=== PATIENT | female | born 1955 | race African-American/Black ===

== ENCOUNTER 2023-11-04 09:05 | Outpatient (AMB) | payer MEDICARE, MEDICAID, SELFPAY ==
[2023-11-04 09:07] VITALS: BP 182/88; PULSE 70; O2SAT 93; BMI 25.1
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
[2023-11-04 09:43] VITALS: BP 160/80
== END 2023-11-04 10:00 | disposition home or self-care (01) ==
PROVIDERS: PCP Physician Assistant; Visit Provider Physician Assistant
DX: M51.9 Unspecified thoracic, thoracolumbar and lumbosacral intervertebral disc disorder (principal); F11.20 Opioid dependence, uncomplicated; F33.1 Major depressive disorder, recurrent, moderate; Z12.31 Encounter for screening mammogram for malignant neoplasm of breast; I10 Essential (primary) hypertension; Z13.1 Encounter for screening for diabetes mellitus; F17.210 Nicotine dependence, cigarettes, uncomplicated; F41.1 Generalized anxiety disorder
CPT/HCPCS: 99204; G2211

== ENCOUNTER 2023-11-21 13:55 | Outpatient (AMB) | payer MEDICARE, MEDICAID, SELFPAY ==
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
[2023-11-21 14:04] VITALS: BP 193/93; PULSE 81; O2SAT 97; BMI 25.6
== END 2023-11-21 14:37 | disposition home or self-care (01) ==
PROVIDERS: PCP Physician Assistant; Referring Provider Physician Assistant; Visit Provider Nurse Practitioner Family
DX: M51.9 Unspecified thoracic, thoracolumbar and lumbosacral intervertebral disc disorder (principal); M47.817 Spondylosis without myelopathy or radiculopathy, lumbosacral region; M54.50 Low back pain, unspecified; G89.29 Other chronic pain; Z91.81 History of falling; M25.551 Pain in right hip; M25.552 Pain in left hip; Z79.891 Long term (current) use of opiate analgesic; M25.50 Pain in unspecified joint
CPT/HCPCS: 99204

== ENCOUNTER → 2023-11-21 13:55 | Outpatient (BNVA) | payer MEDICARE, MEDICAID, SELFPAY | PROVIDERS: PCP Physician Assistant; Referring Provider Physician Assistant; Visit Provider Nurse Practitioner Family | DX: M54.50 Low back pain, unspecified (principal); M25.551 Pain in right hip; M25.552 Pain in left hip; G89.29 Other chronic pain; M47.817 Spondylosis without myelopathy or radiculopathy, lumbosacral region; M51.9 Unspecified thoracic, thoracolumbar and lumbosacral intervertebral disc disorder; M25.50 Pain in unspecified joint; Z91.81 History of falling; Z79.891 Long term (current) use of opiate analgesic | CPT/HCPCS: 99202 ==

== ENCOUNTER 2023-11-26 07:30 | Outpatient (REF) | payer MEDICARE, MEDICAID, SELFPAY ==
[2023-11-26 09:28] LABS: Hematocrit 46.8 % (37.0-47.0); Hemoglobin 15.6 g/dl (12.0-16.0); Mean Corpuscular HGB Conc 33.3 g/dl (31.0-35.0); Mean Corpuscular Hemoglobin 29.2 pg (27.0-33.0); Mean Corpuscular Volume 87.6 fL (80.0-98.0); PLT CLUMP 1; Red Blood Count 5.34 X10*6/uL (4.20-5.50); Red Cell Distribution Width 13.7 % (11.0-16.0)
[2023-11-26 09:59] LABS: Mean Platelet Volume 11.3 fL (9.4-12.3); Platelet Count 187 X10*3/uL (160-400); White Blood Count 9.7 X10*3/uL (4.8-10.8)
[2023-11-26 10:02] LABS: Alanine Aminotransferase 19 U/L (0-31); Albumin Level 3.9 g/dL (3.5-5.0); Alkaline Phosphatase 112 U/L (39-117); Anion Gap 15 (12-20); Aspartate Amino Transferase 23 U/L (5-31); Bilirubin Total 0.4 mg/dL (0.0-1.0); Blood Urea Nitrogen 10 mg/dL (9-16); Calcium 9.8 mg/dL (8.4-10.2); Carbon Dioxide 24 mmol/L (22-29); Chloride 104 mmol/L (96-108); Estimated Glomerular Filt Rate > 60; Glucose Fasting 98 mg/dL (60-99); Potassium 4.2 mmol/L (3.3-5.1); Sodium 139 mmol/L (135-145); Total Protein 8.3 g/dL (6.5-8.0)
== END 2023-11-26 07:31 | disposition home or self-care (01) ==
LOC: HO.MAMMO 07:30
PROVIDERS: PCP Physician Assistant; Visit Provider Physician Assistant
DX: Z12.31 Encounter for screening mammogram for malignant neoplasm of breast (principal); I10 Essential (primary) hypertension; Z13.1 Encounter for screening for diabetes mellitus
CPT/HCPCS: 36415; 77063; 77067; 80053; 85027

== ENCOUNTER → 2023-11-26 11:15 | Outpatient (BNV) | payer MEDICARE, MEDICAID, SELFPAY | PROVIDERS: PCP Physician Assistant; Visit Provider Radiology Diagnostic Radiology | DX: Z12.31 Encounter for screening mammogram for malignant neoplasm of breast (principal) | CPT/HCPCS: 77063; 77067 ==

== ENCOUNTER 2023-11-26 19:30 | Outpatient (REF) | payer MEDICARE, MEDICAID, SELFPAY ==
[2023-11-27 10:14] LABS: Creatinine Urine 116.75 mg/dL; Microalbum/Creatinine Ratio Ur 5.9 ug/mg cr (<30)
== END 2023-11-26 19:31 | disposition home or self-care (01) ==
LOC: HO.LNP 19:30
PROVIDERS: Visit Provider Physician Assistant
DX: I10 Essential (primary) hypertension (principal)
CPT/HCPCS: 82043; 82570

== ENCOUNTER 2023-12-17 08:41 | Outpatient (AMB) | payer MEDICARE, MEDICAID, SELFPAY ==
[2023-12-17 08:53] VITALS: BP 160/72; PULSE 80; O2SAT 92; BMI 26.0
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
[2023-12-17 09:15] VITALS: BP 150/70
== END 2023-12-17 09:21 | disposition home or self-care (01) ==
PROVIDERS: PCP Physician Assistant; Visit Provider Physician Assistant
DX: M51.9 Unspecified thoracic, thoracolumbar and lumbosacral intervertebral disc disorder (principal); I10 Essential (primary) hypertension; F11.20 Opioid dependence, uncomplicated; F17.200 Nicotine dependence, unspecified, uncomplicated
CPT/HCPCS: 99214

== ENCOUNTER 2024-03-02 09:27 | Outpatient (AMB) | payer MEDICARE, MEDICAID, SELFPAY ==
--- NOTE | 2024-03-02 09:28 | MHC.PC.OV ---
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 Required: No Information Interpreted: non-clinical & clinical [employer] Insurance: Not Required per policy Accompanied by: Self / Same As Patient Allergies ciprofloxacin [From Cipro] Allergy (Severe, Verified 03/02/24 10:09) Unknown Medication List - Last Reconciled 03/02/24 by Jose Arreola PA-C baclofen 10 mg PO BEDTIME PRN 15 days blood pressure test kit-medium For automated blood pressure cuff testing once a day methadone 10 mg PO DAILY naloxone 4 mg/actuation intranasal Tobacco use date assessed: 11/04/23 Fall risk assessment: No Falls in past year Last assessed Fall Risk: 03/02/24 Dental Screening Dental Screen Date: 11/04/23 HPI 8 Week F/U HPI Details Patient is a 68 -year-old female here today for follow-up visit Patient has a past medical history significant for opiate dependency, chronic osteoarthritis, hypertension, light smoker. .. .. Hypertension: At last visit we discussed patient's higher blood pressure readings. Patient reports acquiring a blood pressure cuff and reports systolic numbers 130s to 140s even at 170 at home. She does report her blood pressure elevating when she has a high sodium content meal. Fortunately patient denies any chest discomfort, dizziness, vision issues. PLAN: Will start low-dose amlodipine at 2.5 mg daily and continue blood pressure monitoring. .. PFSH Medical History Hep C w/o coma, chronic Surgical History History of surgical removal of meniscus of knee H/O unilateral oophorectomy Family History Mother Myocardial infarct Breast cancer Social History Housing: Apartment Alcohol intake: never Patient Tobacco Use Status: Current everyday Tobacco user Years Smoked: 5. 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 How often do you have six or more drinks on one occasion?: Never Total Score: 0 SARAH-7 AMB Questionnaire SARAH-7 Date SARAH - 7 assessed: 11/04/23 Source: Developed by Drs. Bear Spann, Dorcas Lubin, Patrice Martinez and colleagues, with an educational yong from [employer]. Review of Systems Const Denies headache(s) Eyes Denies loss of vision ENT Denies vertigo, Denies dizziness, Denies headache(s) and Denies sore throat Card Denies chest pain, Denies leg edema and Denies lightheadedness Resp Denies cough, Denies hemoptysis and Denies wheezing GI Denies abdominal pain, Denies melena, Denies constipation, Denies diarrhea and Denies vomiting Denies urinary frequency, Denies dysuria and Denies urinary urgency Musc Denies arthralgias, Denies joint swelling, Denies numbness and Denies tingling Neuro Denies behavioral changes, Denies vertigo, Denies dizziness, Denies headache(s), Denies loss of vision, Denies memory loss, Denies numbness and Denies tingling Psych Denies anxiety, Denies behavioral changes, Denies depression, Denies memory loss and Denies panic attacks Jim/Lymph Denies easy bleeding and Denies easy bruising Aller/Immun Denies wheezing Physical exam (Primary Care) Tobacco/Smoking Status: Tobacco use Status Tobacco use date assessed 11/04/23 03/02/24 09:29 Patient Tobacco Use Status Current everyday Tobacco 03/02/24 09:29 e-Cigarette/Vaping Use Never Used 03/02/24 09:29 Thrive Assessment: Date of Thrive Assessment Date Thrive assessed 11/04/23 03/02/24 09:29 Telehealth Telehealth Telehealth Platform: Telephone Location of provider rendering services: practice address Location of patient: address on file Patient Identification confirmed using: Name, : Yes Telehealth method: voice only Patient verbally consented to treatment: Yes Patient verbally consented to billing insurance company: Yes Patient informed of any privacy concerns related to visit: Yes Minutes spent on Phone/Video with Pt.: 11 Coding Level of Care Code Tele Est Pt Level 3 (39459) Diagnoses Primary hypertension I10 Hypertension type: primary hypertension Assessment & Plan Assessment & Plan (1) HTN (hypertension): Code(s): I10 - Essential (primary) hypertension Category: Medical Qualifiers: Hypertension type: primary hypertension Qualified Code(s): I10 - Essential (primary) hypertension Plan: As per HPI patient willing to start low-dose calcium channel hasmukh thus will start amlodipine 2.5 mg daily. Advised to continue monitoring blood pressure at home with goal blood pressure to be below 140/90. Orders: Orders Comprehensive Bostic. Panel Fast Today I10 - Essential (primary) hypertension Microalbumin, Random (w Creat) Today I10 - Essential (primary) hypertension Complete Blood Count no Diff Today I10 - Essential (primary) hypertension Medications: New amlodipine 2.5 mg PO DAILY 90 days 90 tabs 1RF I10 - Essential (primary) hypertension
== END 2024-03-02 11:54 | disposition home or self-care (01) ==
LOC: HO.HMCH 09:27
PROVIDERS: PCP Physician Assistant; Visit Provider Physician Assistant
DX: I10 Essential (primary) hypertension (principal)

== ENCOUNTER → 2024-03-02 09:27 | Outpatient (BNVA) | payer MEDICARE, MEDICAID, SELFPAY | PROVIDERS: PCP Physician Assistant; Visit Provider Physician Assistant ==

== ENCOUNTER 2024-08-25 14:28 | Outpatient (AMB) | payer MEDICARE, MEDICAID, SELFPAY ==
[2024-08-25 14:36] VITALS: BP 180/82; PULSE 80; TEMP 36.2; O2SAT 99; BMI 27.8
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
[2024-08-25 14:51] VITALS: BP 160/80
== END 2024-08-25 15:02 | disposition home or self-care (01) ==
LOC: HO.HMCH 14:28
PROVIDERS: PCP Physician Assistant; Visit Provider Physician Assistant
DX: M48.062 Spinal stenosis, lumbar region with neurogenic claudication (principal); F33.1 Major depressive disorder, recurrent, moderate; F11.20 Opioid dependence, uncomplicated; I10 Essential (primary) hypertension

== ENCOUNTER → 2024-08-25 14:28 | Outpatient (BNVA) | payer MEDICARE, MEDICAID, SELFPAY | PROVIDERS: PCP Physician Assistant; Visit Provider Physician Assistant | DX: M48.062 Spinal stenosis, lumbar region with neurogenic claudication (principal); F33.1 Major depressive disorder, recurrent, moderate; F11.20 Opioid dependence, uncomplicated; I10 Essential (primary) hypertension | CPT/HCPCS: 96127; 99212 ==

== ENCOUNTER 2024-09-02 09:23 | Outpatient (REF) | payer MEDICARE, MEDICAID, SELFPAY ==
[2024-09-02 10:28] LABS: Hematocrit 44.8 % (37.0-47.0); Hemoglobin 14.8 g/dl (12.0-16.0); Mean Corpuscular Hemoglobin 29.2 pg (27.0-33.0); Mean Corpuscular Volume 88.4 fL (80.0-98.0); Mean Platelet Volume 11.5 fL (9.4-12.3); Platelet Count 226 X10*3/uL (160-400); Red Blood Count 5.07 X10*6/uL (4.20-5.50); Red Cell Distribution Width 13.9 % (11.0-16.0); White Blood Count 8.5 X10*3/uL (4.8-10.8)
[2024-09-02 11:23] LABS: Creatinine Urine 85.97 mg/dL; Microalbum/Creatinine Ratio Ur 11.6 ug/mg cr (<30)
[2024-09-02 11:38] LABS: Alanine Aminotransferase 25 U/L (0-31); Albumin Level 3.8 g/dL (3.5-5.0); Alkaline Phosphatase 115 U/L (39-117); Anion Gap 11 (12-20); Aspartate Amino Transferase 31 U/L (5-31); Bilirubin Total 0.6 mg/dL (0.0-1.0); Blood Urea Nitrogen 7 mg/dL (9-16); Carbon Dioxide 28 mmol/L (22-29); Chloride 107 mmol/L (96-108); Estimated Glomerular Filt Rate > 60; Glucose Fasting 98 mg/dL (60-99); Potassium 3.6 mmol/L (3.3-5.1); Sodium 142 mmol/L (135-145); Total Protein 7.5 g/dL (6.5-8.0)
== END 2024-09-02 09:24 | disposition home or self-care (01) ==
LOC: HO.LAB 09:23
PROVIDERS: PCP Physician Assistant; Visit Provider Physician Assistant
DX: I10 Essential (primary) hypertension (principal)
CPT/HCPCS: 36415; 80053; 82043; 82570; 85027

== ENCOUNTER 2024-09-11 09:27 | Outpatient (AMB) | payer MEDICARE, MEDICAID, SELFPAY ==
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
[2024-09-11 09:37] VITALS: BP 168/82; PULSE 97; O2SAT 98; BMI 27.0
== END 2024-09-11 09:47 | disposition home or self-care (01) ==
LOC: HO.PMC 09:27
PROVIDERS: PCP Physician Assistant; Referring Provider Physician Assistant; Visit Provider Nurse Practitioner Family
DX: M47.817 Spondylosis without myelopathy or radiculopathy, lumbosacral region (principal); M54.50 Low back pain, unspecified; G89.29 Other chronic pain; M25.551 Pain in right hip; M25.552 Pain in left hip; Z91.81 History of falling; Z79.891 Long term (current) use of opiate analgesic; E65 Localized adiposity; M48.062 Spinal stenosis, lumbar region with neurogenic claudication; M54.16 Radiculopathy, lumbar region
CPT/HCPCS: 99214; G2211

== ENCOUNTER 2024-09-11 09:27 | Outpatient (REF) | payer MEDICARE, MEDICAID, SELFPAY ==
--- NOTE | ~2024-09-11 | XR_ITS ---
CLINICAL HISTORY: M47.817 - Spondylosis without myelopathy or radiculopathy, lumbosacral r... 7 views lumbar spine Comparison: None Findings: Normal alignment. No acute fractures or dislocation. L5-S1 degenerative disc change. Multiple level degenerative facet change. IMPRESSION: No acute findings. This document has been electronically signed by: Fahad Cardona MD on 09/12/2024 09:13:55
--- NOTE | ~2024-09-11 | XR_ITS ---
CLINICAL HISTORY: M25.551 - Pain in right hip 5 view, pelvis and right hip Comparison: None Findings: No acute fracture or dislocation. No significant arthritic change. The soft tissues are unremarkable. IMPRESSION: No acute findings. This document has been electronically signed by: Fahad Cardona MD on 09/12/2024 09:14:45
== END 2024-09-11 09:28 | disposition home or self-care (01) ==
LOC: HO.XRAY 09:27
PROVIDERS: PCP Physician Assistant; Referring Provider Physician Assistant; Visit Provider Nurse Practitioner Family
DX: M47.817 Spondylosis without myelopathy or radiculopathy, lumbosacral region (principal); M54.50 Low back pain, unspecified; G89.29 Other chronic pain; M25.551 Pain in right hip; M25.552 Pain in left hip; Z91.81 History of falling; E65 Localized adiposity; M48.062 Spinal stenosis, lumbar region with neurogenic claudication
CPT/HCPCS: 72114; 73521; 99212

== ENCOUNTER → 2024-09-11 10:00 | Outpatient (BNV) | payer MEDICARE, MEDICAID, SELFPAY | PROVIDERS: PCP Physician Assistant; Referring Provider Physician Assistant; Visit Provider Specialist | DX: M47.817 Spondylosis without myelopathy or radiculopathy, lumbosacral region (principal); M25.551 Pain in right hip | CPT/HCPCS: 72114; 73521 ==

== ENCOUNTER → 2024-10-09 08:00 | Outpatient (BNV) | payer MEDICARE, MEDICAID, SELFPAY | PROVIDERS: PCP Physician Assistant; Visit Provider Radiology Diagnostic Radiology | DX: M51.369 Other intervertebral disc degeneration, lumbar region without mention of lumbar back pain or lower extremity pain (principal); M99.63 Osseous and subluxation stenosis of intervertebral foramina of lumbar region | CPT/HCPCS: 72148 ==

== ENCOUNTER 2024-10-09 08:04 | Outpatient (REF) | payer MEDICARE, MEDICAID, SELFPAY ==
--- NOTE | ~2024-10-09 | MR_ITS ---
EXAMINATION: MR LUMBAR SPINE WITHOUT IV CONTRAST History: M47.817 - Spondylosis without myelopathy or radiculopathy, lumbosacral Technique: Sagittal T1, T2 and STIR, and axial T1 and T2 weighted images of the lumbar spine were obtained per departmental protocol. Comparison: Correlation is made with plain films of the lumbar spine dated 09/11/2024. Findings: The vertebral bodies maintain normal height, alignment, and marrow signal intensity. Minimal degenerative changes are noted at L5-S1 with anterior and posterior spurring. At T12-L1,there is no evidence of disc herniation, central spinal stenosis, or neural foraminal narrowing. At L1-2, there is no evidence of disc herniation, central spinal stenosis, or neural foraminal narrowing. At L2-3, there is no evidence of disc herniation, central spinal stenosis, or neural foraminal narrowing. At L3-4, there is a mild disc bulge. There is facet and ligamentum flavum hypertrophy causing mild central spinal stenosis. There is narrowing of the inferior recesses of the bilateral neural foramen. At L4-5, there is a mild to moderate disc bulge. There is facet osteoarthritis causing moderate central spinal stenosis and mild bilateral neural foraminal stenosis. At L5-S1, there is posterior spurring. There is mild facet degenerative change causing right neural foraminal narrowing. The left neural foramen is patent. There is no central spinal stenosis. The conus terminates at the L1-2 level and demonstrates normal signal intensity. The visualized paraspinal soft tissues are unremarkable. MR/MR lumbar spine wo con Impression: 1. Mild central spinal stenosis at L3-4 secondary to a mild disc bulge and facet and ligamentum flavum hypertrophy. 2. Moderate central spinal stenosis at L4-5 secondary to a disc bulge and facet osteoarthritis. Mild bilateral neural foraminal narrowing. 3. Right neural foraminal stenosis at L5-S1 secondary to facet degenerative change. Electronically signed by: Bear Lombardi MD 10/09/2024 09:10 AM EDT
== END 2024-10-09 08:05 | disposition home or self-care (01) ==
LOC: HO.MRI 08:04
PROVIDERS: PCP Physician Assistant; Visit Provider Nurse Practitioner Family
DX: M47.817 Spondylosis without myelopathy or radiculopathy, lumbosacral region (principal); M48.062 Spinal stenosis, lumbar region with neurogenic claudication; M54.16 Radiculopathy, lumbar region; Z91.81 History of falling
CPT/HCPCS: 72148

== ENCOUNTER 2024-11-05 10:34 | Outpatient (AMB) | payer MEDICARE, MEDICAID, SELFPAY ==
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
[2024-11-05 10:41] VITALS: BP 180/84; PULSE 84; O2SAT 98; BMI 28.3
== END 2024-11-05 10:58 | disposition home or self-care (01) ==
LOC: HO.PMC 10:35
PROVIDERS: PCP Physician Assistant; Visit Provider Nurse Practitioner Family
DX: M47.817 Spondylosis without myelopathy or radiculopathy, lumbosacral region (principal); M54.50 Low back pain, unspecified; G89.29 Other chronic pain; Z91.81 History of falling; M25.551 Pain in right hip; M25.552 Pain in left hip; M48.062 Spinal stenosis, lumbar region with neurogenic claudication; M54.16 Radiculopathy, lumbar region; R26.81 Unsteadiness on feet
CPT/HCPCS: 99214; G2211

== ENCOUNTER → 2024-11-05 10:34 | Outpatient (BNVA) | payer MEDICARE, MEDICAID, SELFPAY | PROVIDERS: PCP Physician Assistant; Visit Provider Nurse Practitioner Family | DX: M47.817 Spondylosis without myelopathy or radiculopathy, lumbosacral region (principal); M54.50 Low back pain, unspecified; G89.29 Other chronic pain; Z91.81 History of falling; M25.551 Pain in right hip; M25.552 Pain in left hip; M54.16 Radiculopathy, lumbar region; R26.81 Unsteadiness on feet | CPT/HCPCS: 99212 ==

== ENCOUNTER 2024-12-03 07:22 | Outpatient (REF) | payer MEDICARE, MEDICAID, SELFPAY | END 2024-12-03 07:23 | disposition home or self-care (01) | LOC: HO.MAMMO 07:22 | PROVIDERS: PCP Physician Assistant; Visit Provider Physician Assistant | DX: Z12.31 Encounter for screening mammogram for malignant neoplasm of breast (principal) | CPT/HCPCS: 77063; 77067 ==

== ENCOUNTER → 2024-12-03 07:30 | Outpatient (BNV) | payer MEDICARE, MEDICAID, SELFPAY | PROVIDERS: PCP Physician Assistant; Visit Provider Radiology Body Imaging | DX: Z12.31 Encounter for screening mammogram for malignant neoplasm of breast (principal) | CPT/HCPCS: 77063; 77067 ==

== ENCOUNTER 2024-12-15 06:05 | Outpatient (REF) | payer MEDICARE, MEDICAID, SELFPAY ==
--- NOTE | ~2024-12-15 | FL_ITS ---
EXAMINATION: FL GUIDANCE ONLY HISTORY: M54.16 - Radiculopathy, lumbar region COMPARISON: None available. TECHNIQUE: Fluoroscopy time: 0.7 minutes. Cumulative Dose: 10.3 mGy. DAP: 0.106 mGym2 Images: 5. FINDINGS: Fluoroscopic spot films of the lumbar spine demonstrate needles and contrast material inferior to the bilateral L4 pedicles. FL/FL guidance in treatment room IMPRESSION: Fluoroscopy during procedure. Please see procedure report for additional information. Electronically signed by: Bear Lombardi MD 12/15/2024 09:52 AM EDT
== END 2024-12-15 06:06 | disposition home or self-care (01) ==
LOC: CF 06:05
PROVIDERS: Visit Provider Anesthesiology
DX: M47.817 Spondylosis without myelopathy or radiculopathy, lumbosacral region (principal); M54.16 Radiculopathy, lumbar region; M48.062 Spinal stenosis, lumbar region with neurogenic claudication; M25.551 Pain in right hip; M25.552 Pain in left hip; G89.29 Other chronic pain; M54.50 Low back pain, unspecified; R26.81 Unsteadiness on feet; Z91.81 History of falling
CPT/HCPCS: 64483; J2003; J3301; Q9967

== ENCOUNTER 2024-12-15 07:31 | Outpatient (AMB) | payer MEDICARE, MEDICAID, SELFPAY ==
[2024-12-15 07:47] VITALS: BP 114/67; PULSE 99; RESP 16; O2SAT 97
--- NOTE | 2024-12-15 07:47 | MHC.OFFVIS ---
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 Allergies ciprofloxacin (From Cipro) Allergy (Severe, Verified 11/05/24 10:42) Unknown amlodipine Adverse Reaction (Intermediate, Verified 11/05/24 10:42) pedal edema PFSH Medical History Current smoker on some days Patient on methadone maintenance therapy Polyarthralgia HTN (hypertension) SARAH (generalized anxiety disorder) MDD (major depressive disorder), recurrent episode, moderate Lumbar stenosis Bilateral hip pain Chronic low back pain Lumbosacral spondylosis Opiate dependence Lumbar disc disorder Hep C w/o coma, chronic Surgical History History of surgical removal of meniscus of knee H/O unilateral oophorectomy Family History Mother Myocardial infarct Breast cancer Social History Housing: Apartment Alcohol intake: never Patient Tobacco Use Status: Current everyday Tobacco user Years Smoked: 5. 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 Current occupational exposures/hazards: No Cognitive needs: No Hearing needs: No Vision needs: No Physical Exam Vital Signs: Last Vital Signs Pulse 96 12/15/24 08:53 Resp 18 12/15/24 08:53 BP 151/84 H 12/15/24 08:53 Pulse Ox 98 12/15/24 08:53 Oxygen Delivery Method Room Air 12/15/24 08:53 Assessment & Plan Assessment & Plan (1) Lumbosacral spondylosis: Code(s): M47.817 - Spondylosis without myelopathy or radiculopathy, lumbosacral region Category: Medical (2) Chronic low back pain: Code(s): M54.50 - Low back pain, unspecified; G89.29 - Other chronic pain Category: Medical (3) History of recent fall: Code(s): Z91.81 - History of falling Category: Medical (4) Bilateral hip pain: Code(s): M25.551 - Pain in right hip; M25.552 - Pain in left hip Category: Medical (5) Lumbar stenosis: Code(s): M48.061 - Spinal stenosis, lumbar region without neurogenic claudication Category: Medical Qualifiers: Neurogenic claudication status: with neurogenic claudication Qualified Code(s): M48.062 - Spinal stenosis, lumbar region with neurogenic claudication (6) Lumbar radiculopathy: Code(s): M54.16 - Radiculopathy, lumbar region Category: Medical (7) Unsteady gait when walking: Code(s): R26.81 - Unsteadiness on feet Category: Medical Plan Bilateral transforaminal L4-5 epidural steroid injection Informed consent was thoroughly explained to the patient before the procedure.? The patient came to the operating room.? He was positioned prone on operating table with a pillow under his abdomen.? Time-out was performed delineating correct site and side of the procedure, nature of the injection, name and date of of the patient. The lower back of the patient was prepped with ChloraPrep and draped with sterile utility towels.? C-arm was brought over the operating field, transitional anatomy was noted, the L4 vertebra was located counting down from the 1st [id number] vertebra, and after the sq picture of L4 vertebra was demonstrated on the screen.? The right side was chosen 1st as the side of the injection.? Tilting machine ipsilateral 30 degrees to the right at the level of L4 the most prominent picture of the right superior articular process of L5 was obtained on the screen.? The lateral border of the structure projection to the skin was injected with small amount of lidocaine 1% 3-4 cc .? After that 5 in 22 gauge Quincke point needle was inserted through the skin wheal and was advanced toward the right L4-5 foramina on anterior posterior , lateral and oblique views intermittently.? When needle gently contacted lateral border of the superior articular process of right L5 the needle was slightly deviated lateral advanced 2-3 mm and deviated medial, contrast was injected and demonstrated intravascular spread of the contrast. The needle was withdrawn and positioned was changed to the projection of the 3 mm below of the projection of the lowest point of the pedicle on the right. Injection of the local anesthetic was repeated at the site and after that 22 gauge 5 in needle was inserted through the skin wheal and advanced to were the foramina under anterior posterior and lateral views. When the tip of the needle on anterior posterior view entered the silhouette of the spinal column and appeared to be approximately at the line bisecting the pedicle injection of the contrast was performed demonstrating perineural and epidural spread of the contrast. No intrathecal and no intravascular spread of the contrast was noted. After that treatment solution of lidocaine 1% preservative-free mixed with Kenalog 40 mg was performed into this site. After that the location of the C-arm was changed to demonstrate most prominent picture of the left pedicle, the 3 mm below the projection of the most lowest point of the left pedicle to the skin was injected with lidocaine 1% and after that 22 gauge 5 in needle was inserted through the skin wheal and advanced to were the foramina under anterior posterior, lateral, and oblique views. When tip of the needle on AP view entered projection of the silhouette of the spinal column and the tip of the needle was not crossing over the line bisecting the left pedicle injection of the contrast was performed demonstrating no intrathecal and no intravascular spread of the contrast, it demonstrated perineural and epidural spread of the contrast. Injection of the solution of the lidocaine 1% 3 cc mixed with Kenalog 40 mg was performed into the needle. The needle was withdrawn and sterile Band-Aids were applied. The patient tolerated the procedure well. Orders: Orders FL guidance in treatment room Today M54.16 - Radiculopathy, lumbar region Coding Level of Care Code Procedure Only Diagnoses Lumbosacral spondylosis M47.817 Chronic low back pain M54.50; G89.29 History of recent fall Z91.81 Bilateral hip pain M25.551; M25.552 Spinal stenosis of lumbar region with neurogenic claudication M48.062 Neurogenic claudication status: with neurogenic claudication Lumbar radiculopathy M54.16 Unsteady gait when walking R26.81
[2024-12-15 08:53] VITALS: BP 151/84; PULSE 96; RESP 18; O2SAT 98
== END 2024-12-15 08:53 | disposition home or self-care (01) ==
LOC: HO.PMCPRC 07:31
PROVIDERS: PCP Physician Assistant; Visit Provider Anesthesiology
DX: M47.817 Spondylosis without myelopathy or radiculopathy, lumbosacral region (principal); M54.50 Low back pain, unspecified; G89.29 Other chronic pain; Z91.81 History of falling; M25.551 Pain in right hip; M25.552 Pain in left hip; M48.062 Spinal stenosis, lumbar region with neurogenic claudication; M54.16 Radiculopathy, lumbar region; R26.81 Unsteadiness on feet
CPT/HCPCS: 64483

== ENCOUNTER 2025-02-01 09:04 | Outpatient (AMB) | payer MEDICARE, MEDICAID, SELFPAY ==
--- NOTE | 2025-02-01 09:06 | A.SPINEOV_ITS ---
Vital Signs 02/01/25 09:09 Height 5 ft 2 in Weight 157 lb BMI 28.7 Intake Visit Reasons: LBP Intake Note: Ms. Crowell is here today c/o low back pain that radiates down to the legs. 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 She is a pleasant 69-year-old female comes in today for evaluation of low back pain and shooting pain down her bilateral lower extremities. She reports that this has been ongoing for many years, however over the course of the last year it is significant for worsened. She states that her pain primarily begins in her low back and shoots down the posterior aspect of her bilateral lower extremities, however her left side is significantly worse than the right. She does report some tingling in her bilateral toes, however reports no burning or numbness associated with the pain. She most recently underwent injection at L4-5 with our colleagues in pain management, however states she only obtained about 1 day of relief from the injection before her pain returned. She reports that her pain significantly worsens with ambulation, and that it improves with sitting and resting. In fact she reports 0 pain when sitting down. She does report that she occasionally will wake up overnight and pain, and needs to either take some medication (cyclobenzaprine) or wait for the pain to past to fall back asleep. She has attempted physical therapy in the past, however states that she last went to PT about 1 year ago. She states that she is not currently using any over-the- counter medications at home to help mitigate her pain, however she does use the occasional lidocaine patch to help her symptoms. In addition to this she is also on methadone maintenance. PMH: Opioid use disorder in remission on methadone maintenance, hypertension, major depressive disorder, generalized anxiety disorder, polyarthralgias. Social hx: The patient reports that she smokes a few cigarettes occasionally per day. She denies any other substance use. Medications: Methadone, naloxone, losartan, cyclobenzaprine, lidocaine patches. Allergies: Cipro, amlodipine. Physical exam: On examination the patient has about 4/5 strength with bilateral iliopsoas testing. The rest of her strength in her upper and lower extremities is 5/5. She ambulates slightly hunched over and does so slowly. She is able to rise from a seated position by bracing herself on the chair, and gets up onto the examination table without much issue. She has no significant sensational deficits to light touch on examination. (-) bilateral straight leg raise, (-) De La O's, (-) clonus. Imaging review: MRI of the lumbar spine completed here at [facility] shows slight posterior disc bulge at L3-4 causing mild bilateral foraminal stenosis. There is also posterior disc bulge at L4-5 causing mild- moderate central canal and moderate left-sided lateral recess stenosis. There is notable disc degeneration at L5-S1 with anterior osteophyte growth and some posterior disc bulging. There is moderate right-sided lateral recess stenosis at this level. Impression: Diana is a pleasant 69-year-old female who comes in today for evaluation of low back pain and shooting pain to her bilateral lower extremities. She states that this has been ongoing for many years, however as notably worsened over the course of the past 1 year. She has attempted injections with our colleagues in pain management, however did not obtain longstanding relief. The only real left-sided compression I am able to identify is at L4-5, however the patient had little to no response from injections at this level. Therefore, it is difficult to justify surgical intervention to decompress L4-5. In addition to this the dermatomal distribution of her pain best matches an S1 dermatome, as the pain she describes travels down the posterior aspect of her leg to the bottom of her foot. I do not believe that surgical intervention would be helpful for this patient's back pain at this time. I encouraged her to continue to follow up with our colleagues in pain management to continue to discuss potential pain treatment options. It does sound like she gets fairly good relief from her cyclobenzaprine. It may be worth attempting injections at L5-S1 to see if this helps relieve her pain, given it's distribution. Thank you for allowing us to care for your patient. The total time spent with this visit with this patient was 45 minutes reviewing history, physical exam, MRI imaging review, and implementation of treatment plan or further diagnostic testing Brodie Alicia MD,PhD [facility] Coding Level of Care Code New Pt Level 4 (76367) Diagnoses Lumbar radiculopathy M54.16
[2025-02-01 09:09] VITALS: BMI 28.7
== END 2025-02-01 09:58 | disposition home or self-care (01) ==
LOC: HO.HNS 09:04
PROVIDERS: PCP Physician Assistant; Referring Provider Nurse Practitioner Family; Visit Provider Physician Assistant
DX: M54.16 Radiculopathy, lumbar region (principal)
CPT/HCPCS: 99204

== ENCOUNTER → 2025-02-01 09:04 | Outpatient (BNVA) | payer MEDICARE, MEDICAID, SELFPAY | PROVIDERS: PCP Physician Assistant; Referring Provider Nurse Practitioner Family; Visit Provider Physician Assistant | DX: M54.16 Radiculopathy, lumbar region (principal); F11.21 Opioid dependence, in remission; F17.210 Nicotine dependence, cigarettes, uncomplicated | CPT/HCPCS: 99202 ==

== ENCOUNTER 2025-05-06 10:50 | Outpatient (AMB) | payer MEDICARE, SELFPAY ==
--- NOTE | 2025-05-06 10:54 | A.OFFPC_ITS ---
Vital Signs 05/06/25 10:56 05/06/25 11:27 Height 5 ft 2 in Weight 151 lb 8 oz BMI 27.7 BP 150/88 H 160/80 H Blood Pressure Location Lt brachial Position Sitting Respiration 16 Pulse 108 H Pulse Source Pulse Oximeter Temp 96.8 F Temp Source Temporal Artery Scan Pulse Oximetry (%) 97 Oxygen Delivery Method Room Air Intake Visit Reasons: annual exam Strategic Partnership Manager Required: No Accompanied by: Self / Same As Patient Allergies ciprofloxacin (From Cipro) Allergy (Severe, Verified 05/06/25 11:13) Unknown amlodipine Adverse Reaction (Intermediate, Verified 05/06/25 11:13) pedal edema Medication List - Last Reconciled 05/06/25 by Jose Arreola PA-C blood pressure test kit-medium For automated blood pressure cuff testing once a day cyclobenzaprine 10 mg PO BID 10 days losartan 50 mg PO DAILY 90 days methadone 10 mg PO DAILY naloxone 4 mg/actuation intranasal walker (Ultra-Light Rollator misc) As directed Tobacco use date assessed: 05/06/25 Fall risk assessment: 2 + Falls in past year Last assessed Fall Risk: 05/06/25 Dental Screening Dental Screen Date: 05/06/25 Did you have a dental visit in the last 12 months?: Yes Did you have a dental problem in the last 6 months where you did not have access to dental care?: No Was dental information given to patient?: Patient has dentist HPI annual exam HPI Details Patient is a 69-year-old female here today for routine annual physical. Patient has a past medical history significant for opiate dependency, chronic osteoarthritis, hypertension, light smoker. .. Lumbar stenosis: Now followed by pain management, continues on methadone and p.r.n. use of a muscle relaxer for her back. She has been using a lumbar support brace which does help her stabilize her low back. She is asking for script for Rollator walker to help with ambulation and fall risk reduction. .. Hypertension: At last visit we discussed patient's higher blood pressure readings. Noted high blood pressure reading today in office. Patient reports acquiring a blood pressure cuff and reports systolic numbers 130s to 140s . She continues on losartan 50 mg. PLAN: Will increase her losartan to 100 mg for better blood pressure control . Light cigarette smoker: Patient does report smoking a few cigarettes throughout the week. She has willing to do though pneumonia vaccine . Opiate dependency: Continues to follow a methadone clinic, she reports she stays away from any illicit drug use per patient. Colon cancer screening: reports getting colonoscopy 4 years ago- will try to get records from [place].Willing to do cologaurd Mammograms: Done in 11/2024 -BI-RADS 1 Vaccines: Up-to-date with COVID vaccine, Did get Shingles vaccine, needs pneumonia vaccine. Declines flu vaccine [facility] Medical History Current smoker on some days Patient on methadone maintenance therapy Polyarthralgia HTN (hypertension) SARAH (generalized anxiety disorder) MDD (major depressive disorder), recurrent episode, moderate Lumbar stenosis Bilateral hip pain Chronic low back pain Lumbosacral spondylosis Opiate dependence Lumbar disc disorder Hep C w/o coma, chronic Surgical History History of surgical removal of meniscus of knee H/O unilateral oophorectomy Family History (Updated 05/06/25 @ 11:19 by Jose Arreola PA-C) Mother Myocardial infarct Breast cancer Brother Skin cancer Social History Housing: Apartment Alcohol intake: never Patient Tobacco Use Status: Current someday Tobacco user Years Smoked: 5. 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 1. Little interest or pleasure in doing things: more than half the days 2. Feeling down, depressed, or hopeless: more than half the days 3. Trouble falling or staying asleep, or sleeping too much: nearly every day 4. Feeling tired or having little energy: nearly every day 5. Poor appetite or overeating: not at all 6. Feeling bad about yourself - or that you are a failure or have let yourself or your family down: several days 7. Trouble concentrating on things, such as reading the newspaper or watching television: nearly every day 8. Moving or speaking so slowly that other people could have noticed. Or the opposite - being so fidgety or restless that you have been moving around a lot more than usual: several days 9. Thoughts that you would be better off or of hurting yourself in some way: not at all Total score: 15 Depression Screening Interpretation: Positive Depression Screening Follow-up: Existing condition and Declines treatment Depression Screening Done: Yes 80357 - PHQ-9 Billing: Yes Source: Developed by Drs. Bear Spann, Dorcas Lubin, Patrice Martinez and colleagues, with an educational yong from [email or web address]. Thrive Questionnaire Date Thrive assessed: 05/06/25 I am a: Patient What is your living situation today?: I have a place to live, but I am worried about losing it in the future Within the past 12 months, did the food you bought not last and you didn't have the money to get more?: Sometimes True Within the past 12 months, did you worry whether your food would run out before you got money to buy more?: Sometimes True Do you have trouble paying for medicines?: Yes Do you have trouble getting transportation to medical appointments?: Yes Do you have trouble paying your heating and electricity bill?: Yes Do you have trouble taking care of your child, family member or friend?: No Do you have trouble with day-to-day activities such as bathing, preparing meals, shopping, managing finances, etc.?: Yes Are you currently unemployed and looking for a job?: No Are you interested in more education?: No Please select the resources that you would like help with: Housing/[facility], Food, Paying for medicine and Transportation Currently or been in a relationship where the following occur: No concerns reported THRIVE Score: 5 AUDIT C Alcohol Use Questionnaire (AUDIT-C) 1. How often do you have a drink containing alcohol?: Never 3. How often do you have six or more drinks on one occasion?: Never Total Score: 0 SARAH-7 AMB Questionnaire SARAH-7 Date SARAH - 7 assessed: 05/06/25 Feeling nervous, anxious, or on edge: 1 = Several days Not being able to stop or control worryin = Not at all Worrying too much about different things: 0 = Not at all Trouble relaxin = Several days Being so restless that it is hard to sit still: 0 = Not at all Becoming easily annoyed or irritable: 0 = Not at all Feeling afraid as if something awful might happen: 0 = Not at all Total SARAH-7 score (0-4 normal; 5-9 mild; 10-14 moderate; 15-21 severe): 2 Source: Developed by Drs. Bear Spann, Dorcas Lubin, Patrice Martinez and colleagues, with an educational yong from [email or web address]. SARAH-7 Assessment Billing SARAH-7 Assessment Tool: SARAH-7 Assessment 19326 Review of Systems Const Denies body aches, Denies chills, Denies excessive sweating, Denies fatigue, Denies fever(s) and Denies headache(s) Eyes Denies blurry vision ENT Denies dysphagia, Denies vertigo, Denies dizziness, Denies headache(s), Denies hearing loss and Denies tinnitus Card Denies chest pain, Denies chest pain with activity, Denies syncope, Denies irregular heart rhythm and Denies dyspnea Resp Denies chest congestion, Denies cough, Denies hemoptysis, Denies dyspnea and Denies wheezing GI Denies abdominal pain, Denies melena, Denies hematochezia, Denies coffee ground emesis, Denies dysphagia, Denies diarrhea, Denies nausea and Denies vomiting Denies urinary frequency, Denies dysuria, Denies urinary hesitancy and Denies urinary urgency Musc Denies arthralgias, Denies limited range of motion, Denies muscle cramps and Denies muscle weakness Skin/Breast Denies rash and Denies skin ulcer Neuro Denies Abnormal speech present, Denies confusion, Denies vertigo, Denies dizziness, Denies syncope, Denies headache(s), Denies memory loss and Denies seizure-like activity Psych Denies anxiety, Denies confusion, Denies depression, Denies memory loss, Denies panic attacks and Denies paranoia Endo Denies excessive sweating, Denies fatigue, Denies flushing, Denies polydipsia and Denies polyuria Aller/Immun Denies wheezing Physical exam (Primary Care) Vital Signs: Last Vital Signs Temp 96.8 F 05/06/25 10:56 Pulse 108 H 05/06/25 10:56 Resp 16 05/06/25 10:56 BP 160/80 H 05/06/25 11:27 Pulse Ox 97 05/06/25 10:56 Oxygen Delivery Method Room Air 05/06/25 10:56 BMI result Body Mass Index 27.7 Tobacco/Smoking Status: Tobacco use Status Tobacco use date assessed 05/06/25 05/06/25 11:03 Patient Tobacco Use Status Current someday Tobacco 05/06/25 11:03 e-Cigarette/Vaping Use Never Used 05/06/25 11:03 Are you ready to quit: Yes Tobacco cessation counseling provided: Yes Items discussed: Nicotine replacement Relapse Prevention: discussed the importance of a supportive environment, discu ssed negative mood or depression after quitting, weight gain after smoking is common and discussed dietary, exercise and/or lifestyle changes Number of minutes spent counselin CPT code: 33043 - 4-10 Minutes PHQ-9: PHQ-9 Score PHQ-9: Total score 15 05/06/25 11:54 Depression Screening Interpretation: Positive Depression Screening Follow-up: Existing condition and Declines treatment Thrive Assessment: Date of Thrive Assessment Date Thrive assessed 05/06/25 05/06/25 11:03 Currently or been in a relationship where the following occur: No concerns reported Const General: cooperative, comfortable, no acute distress, alert and awake; No co nfusion Orientation/consciousness: oriented to person, oriented to place, patient oriented x3 and No confusion HENMT Head: Yes normocephalic Ears: external ears normal and TM's normal bilaterally Face and sinus: No sinus tenderness Mouth: Normal oral and palatal mucosa present and tongue normal Teeth and gingiva: dentition normal and gingiva normal Throat: Yes posterior oropharynx normal, Yes tonsils normal and Yes uvula midline Eyes Conjunctivae: conjunctivae normal Sclerae: sclerae normal Pupils: Equal, round and reactive pupils present EOM: EOMs intact bilaterally Direct Ophthalmoscopy: No no photophobia Neck Neck: Yes no lymphadenopathy, No tender and Yes no JVD Thyroid: Thyroid normal Carotids: no bruits Chest Chest palpation & inspection: no tenderness Resp Effort & Inspection: normal respiratory effort, no audible wheezes, not labored and no stridor Auscultation: no crackles, no rales, no rhonchi and no wheezes Cardio Jugular venous distension: no JVD Rate: regular rate, not bradycardic and not tachycardic Rhythm: regular rhythm Bruits: no carotid bruits Peripheral pulses: Peripheral pulses 2+ throughout GI Inspection: Yes normal to inspection, No abdominal wall ecchymosis and No visible herniation Palpation (GI): Soft to palpation, nontender, no guarding, not rigid and No hepatosplenomegaly present Auscultation: normoactive bowel sounds General: Yes no CVA tenderness Back/Spine/Pelvis Back: no CVA tenderness and No back tenderness Cervical Spine: cervical ROM normal Thoracic/Lumbar Spine: thoracic and lumbar spine normal to inspection, straight leg raise negative bilaterally, No thoraco-lumbar ROM limited and No lumbar spinal tenderness Skin Lesions: no lesions Rashes: no rashes Wounds: no wounds Neuro General: oriented to person, oriented to place, patient oriented x3, CN's II-XI intact bilaterally and No confusion Cranial nerves: Yes Equal, round and reactive pupils present and Yes Normal accommodation reflex present Cognition (Neuro): normal cognition Speech: No Abnormal speech present Gait exam (Neuro): Normal gait present Motor exam (neuro): 5/5 motor strength present throughout Extrem Right upper extremity: full ROM; no cyanosis Left upper extremity: full ROM; no cyanosis Right lower extremity: no edema Left lower extremity: no edema Psych Appearance: grossly normal Mental Status: mental status grossly normal Affect: normal affect Attitude: cooperative Thought process: Normal thought process present Immunizations pneumoc 20-jose cruz conj-dip cr(PF) 0.5 mL IM syringe Performing Provider: Jose Arreola PA-C [facility] Administered by: Denae Ramos CMA on 05/06/25 11:54 Dose Route Admin Location Dispensed Lot Number Expiration Date [facility] Shipping And Receiving 0.5 mL IM Left Deltoid 0.5 mL [id number] 02/23/26 [id number] [employer] Total Dispensed Waste 0.5 mL 0 % VIS Given Date VIS Provided VIS Publication Date 05/06/25 Single Vaccine 24 Eligibility Eligibility Date Funding Source Not [facility] Eligible 05/06/25 Private Coding Level of Care Code Est Pt Prev Care >65y(38501) Diagnoses Annual physical exam Z00.00 Spinal stenosis of lumbar region with neurogenic claudication M48.062 Neurogenic claudication status: with neurogenic claudication MDD (major depressive disorder), recurrent episode, moderate F33.1 Uncomplicated opioid dependence F11.20 Substance use status: uncomplicated Primary hypertension I10 Hypertension type: primary hypertension Additional Codes PHQ-9 - 64002 - PHQ-9 Billing: Yes ([id number]) SARAH-7 Assessment Billing - SARAH-7 Assessment Tool: SARAH-7 Assessment 68049 ([id number]) Vital Signs *Quality* - CPT code: 88561 - 4-10 Minutes ([id number]) Assessment & Plan Assessment & Plan (1) Annual physical exam: Code(s): Z00.00 - Encounter for general adult medical examination without abnormal findings Category: Medical Plan: As per HPI (2) Lumbar stenosis: Code(s): M48.061 - Spinal stenosis, lumbar region without neurogenic claudication Category: Medical Qualifiers: Neurogenic claudication status: with neurogenic claudication Qualified Code(s): M48.062 - Spinal stenosis, lumbar region with neurogenic claudication Plan: Has been referred to pain management and now is using a lumbar support brace which has been helpful. She has use a muscle relaxer from time to time. Try to set her up with a Rollator walker to help her with her ambulation to reduce her fall risk. (3) MDD (major depressive disorder), recurrent episode, moderate: Code(s): F33.1 - Major depressive disorder, recurrent, moderate Category: Medical Plan: Patient's PHQ-9 score positive for moderate depression which has been existing condition for her. She continues to see a counselor methadone clinic. She is not interested in mental health medications at this time. (4) Opiate dependence: Code(s): F11.20 - Opioid dependence, uncomplicated Category: Medical Qualifiers: Substance use status: uncomplicated Qualified Code(s): F11.20 - Opioid dependence, uncomplicated Plan: Patient continues to follow a methadone clinic in [place]. (5) HTN (hypertension): Code(s): I10 - Essential (primary) hypertension Category: Medical Qualifiers: Hypertension type: primary hypertension Qualified Code(s): I10 - Essential (primary) hypertension Plan: Patient's blood pressure elevated today in office. She continues on losartan 50 mg though will increase her dose to 100 mg daily for better blood pressure control.. Advised to continue monitoring her blood pressure with goal blood pressure to be below 140/90. Orders: Orders Complete Blood Count no Diff Today I10 - Essential (primary) hypertension Comprehensive [place]. Panel Fast Today I10 - Essential (primary) hypertension Microalbumin, Random (w Creat) Today I10 - Essential (primary) hypertension Pneumococcal 20 Immunization Today I10 - Essential (primary) hypertension, Z23 - Encounter for immunization Pneumococcal 20 Immunization Today Z23 - Encounter for immunization Medications: New losartan 100 mg PO DAILY 90 tabs 1RF 90 days I10 - Essential (primary) hypertension pneumoc 20-jose cruz conj-dip cr(PF) 0.5 mL IM ONCE 0.5 mL 0RF Z23 - Encounter for immunization Refilled walker (Ultra-Light Rollator misc) As directed 1 ea 0RF G89.29 - Other chronic pain, M25.551 - Pain in right hip, M25.552 - Pain in left hip, M47.817 - Spondylosis without myelopathy or radiculopathy, lumbosacral region, M48.062 - Spinal stenosis, lumbar region with neurogenic claudication, M54.16 - Radic ulopathy, lumbar region, M54.50 - Low back pain, unspecified, R26.81 - Unsteadiness on feet, Z91.81 - History of falling Discontinued losartan Discontinued Reason: Doctor's Order 50 mg PO DAILY 90 days 90 tabs 1RF I10 - Essential (primary) hypertension
[2025-05-06 10:56] VITALS: BP 150/88; PULSE 108; RESP 16; TEMP 36; O2SAT 97; BMI 27.7
[2025-05-06 11:27] VITALS: BP 160/80
== END 2025-05-06 13:20 | disposition home or self-care (01) ==
LOC: HO.HMCH 10:51
PROVIDERS: PCP Physician Assistant; Visit Provider Physician Assistant
DX: Z00.00 Encounter for general adult medical examination without abnormal findings (principal); M48.062 Spinal stenosis, lumbar region with neurogenic claudication; F33.1 Major depressive disorder, recurrent, moderate; F11.20 Opioid dependence, uncomplicated; I10 Essential (primary) hypertension; Z23 Encounter for immunization

== ENCOUNTER → 2025-05-06 10:50 | Outpatient (BNVA) | payer MEDICARE, SELFPAY | PROVIDERS: PCP Physician Assistant; Visit Provider Physician Assistant | DX: Z00.00 Encounter for general adult medical examination without abnormal findings (principal); M48.062 Spinal stenosis, lumbar region with neurogenic claudication; F33.1 Major depressive disorder, recurrent, moderate; F11.20 Opioid dependence, uncomplicated; I10 Essential (primary) hypertension; Z23 Encounter for immunization; Z13.31 Encounter for screening for depression; Z13.39 Encounter for screening examination for other mental health and behavioral disorders | CPT/HCPCS: 90471; 90677; 96127; 99397 ==